=== PATIENT | female | born 1955 | race Hispanic/Latino ===

== ENCOUNTER 2021-04-04 05:42 | Observation (INO) | payer MEDICARE ==
[2021-04-03 16:47] VITALS: BP 154/73
[2021-04-03 17:06] LABS: BASOPHILS % (AUTO) 0.6 % (0.0-5.0); EOSINOPHILS % (AUTO) 1.7 % (0.0-8.0); HEMATOCRIT 39.8 % (36-48); LYMPHOCYTES % (AUTO) 24.7 % (21.0-51.0); MEAN CORPUSCULAR HEMOGLOBIN 30.5 pg (27.0-33.0); MEAN CORPUSCULAR HGB CONC 32.9 g/dL (32.0-36.0); MEAN CORPUSCULAR VOLUME 92.8 fL (79-99); MONOCYTES % (AUTO) 4.2 % (3.0-13.0); NEUTROPHILS % (AUTO) 68.5 % (40.0-77.0); PLATELET COUNT (AUTO) 351 K/uL (130-400); RED BLOOD CELL COUNT(AUTO) 4.29 MIL/uL (4.00-5.50); RED CELL DISTRIBUTION WIDTH 12.8 % (11.0-15.5); WHITE BLOOD COUNT (AUTO) 8.7 K/uL (4.8-10.8)
[2021-04-04] VITALS (23 sets, daily range): BP systolic 85–149; BP diastolic 40–89
[~2021-04-04] VITALS: Ht 162.6 cm; Wt 87.6 kg
[2021-04-04] MEDS ORDERED: LIDOCAINE PF 100MG/5ML (2%) SYRINGE 5ML ONE (08:53)
[2021-04-04] MEDS ORDERED: NEOSTIGMINE 5MG/5ML SYR IV ONE (08:53)
[2021-04-04] MEDS ORDERED: DEXAMETHASONE SOD PHOSPHATE 10MG/ML 1ML VIAL ONE (08:53)
[2021-04-04] MEDS ORDERED: PROPOFOL 10 MG/ML 20ML VIAL IV ONE (08:53)
[2021-04-04] MEDS ORDERED: GLYCOPYRROLATE 1 MG/5 ML SYRINGE ONE (08:53)
[2021-04-04] MEDS ORDERED: MIDAZOLAM HCL 1 MG/ML 2ML VIAL ONE (08:53)
[2021-04-04] MEDS ORDERED: FENTANYL CITRATE PF 50 MCG/1 ML 2ML VIAL ONE ×3 (08:53→12:04)
[2021-04-04] MEDS ORDERED: ROCURONIUM 10MG/1ML SYR 10 MG/ML ML ONE (08:53)
[2021-04-04] MEDS ORDERED: SUCCINYLCHOLINE 200MG/10ML SYR ONE (08:53)
[2021-04-04 08:54] LABS: POTASSIUM 3.4 mmol/L (3.5-5.1)
[2021-04-04] MEDS ORDERED: LISI1TAB51 PO (08:54)
[2021-04-04] MEDS ORDERED: PIOG30TA70 PO (08:54)
[2021-04-04] MEDS ORDERED: AMOX-426 PO (08:54)
[2021-04-04] MEDS ORDERED: MEPERIDINE-PF 25 MG/ML SYG ONE ×3 (08:54→13:10)
[2021-04-04] MEDS ORDERED: PRAV20TA4 PO (08:54)
[2021-04-04] MEDS: CEFAZOLIN SODIUM 1 GM VIAL ONE ×2 (09:44→10:05)
[2021-04-04] MEDS ORDERED: ESTROGENS,CONJUGATED 0.625 MG/GM 42.5 GM VAG CRM VG ONE (11:55)
[2021-04-04] MEDS ORDERED: ACETAMINOPHEN WITH CODEINE 1 TAB TAB PO PRN (14:00)
[2021-04-04] MEDS ORDERED: ONDANSETRON 4MG INJ IVP PRN (14:00)
[2021-04-04] MEDS ORDERED: BISACODYL 10 MG SUPP.RECT RC PRN (14:00)
[2021-04-04] MEDS ORDERED: IBUPROFEN 600 MG TABLET PO PRN (14:00)
[2021-04-04] MEDS ORDERED: PROMETHAZINE HCL 25 MG/ML 1ML AMPULE IM PRN (14:00)
[2021-04-04] MEDS: PROMETHAZINE HCL 25 MG/ML 1ML AMPULE IM PRN ×2 (14:52→18:13)
[2021-04-04] MEDS: MEPERIDINE-PF 75 MG/ML SYG IM PRN ×2 (14:52→18:13)
[2021-04-04] MEDS: INSULIN HUMULIN R 100 UNIT/ML 3ML SQ SCH ×2 (16:30→21:00)
[2021-04-04] MEDS: LACTATED RINGERS 1000ML 1,000 ML IV SCH (18:16)
[2021-04-05] MEDS: LACTATED RINGERS 1000ML 1,000 ML IV SCH ×3 (02:13→22:00)
[2021-04-05 03:14] VITALS: BP 127/67
[2021-04-05 06:44] LABS: HEMATOCRIT 34.4 % (36-48); MEAN CORPUSCULAR HEMOGLOBIN 31.1 pg (27.0-33.0); MEAN CORPUSCULAR HGB CONC 33.1 g/dL (32.0-36.0); RED BLOOD CELL COUNT(AUTO) 3.66 MIL/uL (4.00-5.50); RED CELL DISTRIBUTION WIDTH 12.6 % (11.0-15.5); WHITE BLOOD COUNT (AUTO) 12.7 K/uL (4.8-10.8)
[2021-04-05] MEDS: INSULIN HUMULIN R 100 UNIT/ML 3ML SQ SCH ×4 (07:17→21:00)
[2021-04-05 07:19] VITALS: BP 127/58
[2021-04-05] MEDS: HYDROCODONE/ACETAMINOPHEN 5/325 MG TAB PO PRN ×2 (09:06→12:25)
[2021-04-05] MEDS: DOCUSATE SODIUM 100 MG CAP PO PRN ×2 (09:06→21:00)
[2021-04-05] MEDS: SIMETHICONE 80 MG TAB.CHEW PO PRN ×3 (09:06→20:59)
[2021-04-05] MEDS: NITROFURANTOIN MONOHYD/M-CRYST 100 MG CAPSULE PO SCH ×2 (09:06→21:00)
[2021-04-05 11:05] VITALS: BP 120/66
[2021-04-05] MEDS: IBUPROFEN 800 MG TAB PO PRN (14:28)
[2021-04-05] MEDS: ACETAMINOPHEN WITH CODEINE 1 TAB TAB PO PRN ×2 (16:18→21:04)
[2021-04-05 16:27] VITALS: BP 116/55
[2021-04-05 19:25] VITALS: BP 112/67
[2021-04-05 23:10] VITALS: BP 108/68
[2021-04-06 03:06] VITALS: BP 126/72
[2021-04-06] MEDS: LACTATED RINGERS 1000ML 1,000 ML IV SCH (03:26)
[2021-04-06] MEDS: HYDROCODONE/ACETAMINOPHEN 5/325 MG TAB PO PRN (03:34)
[2021-04-06] MEDS: IBUPROFEN 800 MG TAB PO PRN ×2 (06:32→12:20)
[2021-04-06] MEDS: INSULIN HUMULIN R 100 UNIT/ML 3ML SQ SCH (06:45)
[2021-04-06 07:24] VITALS: BP 125/67
[2021-04-06] MEDS: NITROFURANTOIN MONOHYD/M-CRYST 100 MG CAPSULE PO SCH (08:56)
[2021-04-06] MEDS: SIMETHICONE 80 MG TAB.CHEW PO PRN (08:56)
[2021-04-06] MEDS: DOCUSATE SODIUM 100 MG CAP PO PRN (08:56)
[2021-04-06] MEDS: ACETAMINOPHEN WITH CODEINE 1 TAB TAB PO PRN (09:00)
[2021-04-06] MEDS ORDERED: ACET1TAB25 PO (12:16)
[2021-04-06] MEDS ORDERED: NITR100C4 PO (12:16)
== END 2021-04-06 12:45 | disposition home or self-care (01) ==
LOC: DAH 05:42 → WSH 05:43 → DAH 05:43 → WSH 13:50
PROVIDERS: ADMIT Obstetrics & Gynecology; ATTEND Obstetrics & Gynecology
DX: N81.3 Complete uterovaginal prolapse (principal); K46.9 Unspecified abdominal hernia without obstruction or gangrene; Z79.899 Other long term (current) drug therapy
CPT/HCPCS: 36415 ×3; 58263; 80048; 82948 ×9; 85025; 85027; 86850; 86900; 86901; 87635; 88305; 96360; 96361 ×2; 96372; A4215; A4221; A4222; A4223; A4344; A4351; A4606; A4663; A5113; A6407; C1771; C9803; G0378 ×52; J0330; J0690; J1100; J2001; J2175 ×5; J2250; J2550 ×2; J2704; J2710; J3010 ×3; J3490; J7030; J7120 ×3

== ENCOUNTER 2024-04-15 12:21 | Emergency (ER) | payer MEDICARE ==
[~2024-04-15] VITALS: Ht 162.6 cm; Wt 83.5 kg
[~2024-04-15 12:21] MED LIST: ACET-2079 PO; LISI1TAB51 PO; NITR100C4 PO; PIOG30TA70 PO; PRAV20TA4 PO
[2024-04-15 13:13] LABS: BASOPHILS # (AUTO) 0.05 K/uL (0.00-0.20); BASOPHILS % (AUTO) 0.5 % (0.0-5.0); EOSINOPHILS # (AUTO) 0.06 K/uL (0.00-0.70); EOSINOPHILS % (AUTO) 0.6 % (0.0-8.0); HEMATOCRIT 39.6 % (36-48); IMMATURE GRANULOCYTE ABSOLUTE 0.04 K/uL (0-1); LYMPHOCYTES # (AUTO) 1.5 K/uL (1.0-4.8); LYMPHOCYTES % (AUTO) 15.7 % (21.0-51.0); MEAN CORPUSCULAR HEMOGLOBIN 30.6 pg (27.0-33.0); MEAN CORPUSCULAR HGB CONC 33.3 g/dL (32.0-36.0); MEAN CORPUSCULAR VOLUME 91.9 fL (79-99); MONOCYTES # (AUTO) 0.4 K/uL (0.1-1.0); NEUTROPHILS # (AUTO) 7.6 K/uL (1.8-7.7); NEUTROPHILS % (AUTO) 78.8 % (40.0-77.0); PLATELET COUNT (AUTO) 316 K/uL (130-400); RED BLOOD CELL COUNT(AUTO) 4.31 MIL/uL (4.00-5.50); RED CELL DISTRIBUTION WIDTH 12.4 % (11.0-15.5); WHITE BLOOD COUNT (AUTO) 9.6 K/uL (4.8-10.8)
[2024-04-15] MEDS: ONDANSETRON 4MG INJ IVP ONE (13:45)
[2024-04-15] MEDS: MECLIZINE HCL 25 MG TABLET PO ONE (13:45)
[2024-04-15] MEDS: SOLU-MEDROL 125MG VIAL IVP ONE (13:45)
[2024-04-15] MEDS: 0.9%NACL 1000ML 1,000 ML IV ONE (13:45)
[2024-04-15 13:53] LABS: BILIRUBIN,TOTAL 0.5 mg/dL (0.2-1.0); CREATININE 2.6 mg/dL (0.5-1.0); POTASSIUM 3.4 mmol/L (3.5-5.1); TOTAL PROTEIN, SERUM 7.3 g/dL (6.0-8.3)
[2024-04-15] MEDS: POTASSIUM BICARB/CIT AC 25 MEQ TABLET.EFF PO ONE (14:52)
[2024-04-15 16:12] VITALS: BP 124/66; PULSE 89; RESP 18; O2SAT 96
[2024-04-15] MEDS ORDERED: ONDA-243 PO (16:21)
[2024-04-15] MEDS ORDERED: MECL-302 PO (16:21)
== END 2024-04-15 16:36 | disposition home or self-care (01) ==
LOC: EDH 12:21
DX: H81.10 Benign paroxysmal vertigo, unspecified ear (principal); E87.6 Hypokalemia; E11.22 Type 2 diabetes mellitus with diabetic chronic kidney disease; I13.10 Hypertensive heart and chronic kidney disease without heart failure, with stage 1 through stage 4 chronic kidney disease, or unspecified chronic kidney disease; N18.9 Chronic kidney disease, unspecified; R11.2 Nausea with vomiting, unspecified; E78.00 Pure hypercholesterolemia, unspecified; Z90.710 Acquired absence of both cervix and uterus; Z90.49 Acquired absence of other specified parts of digestive tract; Z98.890 Other specified postprocedural states; Z79.899 Other long term (current) drug therapy; Z79.2 Long term (current) use of antibiotics
CPT/HCPCS: 99285; 96374; 70450; 71045; 96361; 96375; 84484; 80053; 85025; 36415; 93005; J7030; J2919; J2405

== ENCOUNTER 2024-12-15 10:15 | Emergency (ER) | payer MEDICARE ==
[~2024-12-15] VITALS: Ht 162.6 cm; Wt 89.4 kg
[~2024-12-15 10:15] MED LIST changes: +MECL-302 PO; +ONDA-243 PO
--- NOTE | 2024-12-15 10:57 | EKG ---
[facility] Test Date: 2024-12-15 Test Time: 10:42:24 Pat Name: DEMETRA NGUYEN Department: ED Room: Gender: F Facilities Maintenance Manager: [id number] : [id number] Requested By: KODI GARCIA Order Number: [id number] Reading MD: Anand Hahn Measurements Intervals [place] Rate: 95 P: 46 GA: 142 QRS: 92 QRSD: 89 T: 52 QT: 353 QTc: 445 Interpretive Statements Sinus rhythm Right axis deviation Compared to ECG 04/15/2024 12:42:24 Right-axis deviation now present Electronically Signed On 12-16-2024 12:47:41 MATTRESS MAKER by Anand Hahn Please click the below link to view image of tracing.
[2024-12-15 11:30] VITALS: BP 104/60; PULSE 90; RESP 16; TEMP 98.1; O2SAT 98
--- NOTE | 2024-12-15 11:30 | ERN ---
ED Note History of Present Illness Stated Complaint: BACK, SHOULDER PAIN Chief Complaint: Shoulder Injury/Pain Time Seen by MD: 10:16 Time Seen by Midlevel: 10:20 Dictation: 69-year-old female with a history of hypertension, diabetes, cholesterol coming in complaining of bilateral upper back pain/burning sensation for the last three weeks. Patient denies any trauma or fall. Denies lifting or pushing anything heavy. Denies any chest pain or chest discomfort or shortness a breath. 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 04/15/24 Meclizine HCl (Meclizine HCl) 25 Mg Tablet, 25 MG PO TIDP for DIZZINESS, #30 TAB Prov:NISHA IGLESIAS [employer]HEAD CONSTRUCTION WORKER 04/15/24 Reported Medications Nitrofurantoin Monohyd/M-Cryst (Macrobid 100 mg Capsule) 100 Mg Capsule, 100 MG PO BID, CAP 04/06/21 Acetaminophen with Codeine (Acetaminophen-Cod #3 Tablet) 1 Each Tablet, 1 EACH PO Q4HPRN PRN for PAIN LEVEL 6 TO 10, TAB 04/06/21 Lisinopril/Hydrochlorothiazide (Lisinopril-Hctz 20-12.5 mg Tab) 1 Each Tablet, 1 EACH PO BID, TAB 04/04/21 Pravastatin Sodium (Pravastatin Sodium) 20 Mg Tablet, 20 MG PO HS, TAB 04/04/21 Pioglitazone HCl (Pioglitazone HCl) 30 Mg Tablet, 30 MG PO DAILY, TAB 04/04/21 Past Medical History Past Medical History: Diabetes-Type II, High Cholesterol, Hypertension Surgical History: Appendectomy, Hysterectomy, Other Surgical History Other: BLADDER LIFT History: Not Applicable Review of System Dictation Constitutional: Negative for fever,chills, and weight loss Eyes: Negative for injury, pain,redness, and discharge ENT: Negative for injury,pain or swelling Cardiovascular: Negative for chest pain, palpitations, and edema Respiratory: Negative for shortness of breath, cough, and wheezing, Abdomen/GI: Negative for abdominal pain, nausea, vomiting, diarrhea, and constipation Back: Bilateral upper back pain along the scapular area : Negative for injury, bleeding and discharge MS/Extremity: Negative for injury and deformity Skin: Negative for rash, and discoloration Neuro: Negative for headache, weakness, numbness, tingling, and seizure Psych: Negative for suicide ideation, homicidal ideation, and hallucinations Review of Systems: was completed Initial Vital Sign VS Vital Signs Date Time Temp Pulse Resp B/P (MAP) Pulse Ox O2 Delivery O2 Flow Rate FiO2 12/15/24 10:26 97.7 93 16 101/60 95 Room Air 12/15/24 11:30 0 21 Physical Exam Dictation General: awake, alert, NAD Head/Face: Normocephalic, atraumatic Eyes: PERRL, EOMI, vision at baseline ENT: oral cavity clear, TMs clear, no signs of infection Neck: Trachea midline, supple, no nuchal rigidity Cardiovascular: RRR, normal S1/S2, No MRGs, no JVD Respiratory: CTAB, no respiratory distress, No rales or wheezes Abdomen: Soft, non-tender, non-distended, normal bowel sounds, no guarding or rebound. Skin: Warm, dry, normal turgor, no rash MS/Extremity: Pulses equal, no cyanosis, neurovascular intact, FROM, pain when patient lifts her left arm on the upper back area, pain on palpation to bilateral upper back along the scapular area no obvious signs of injury, no rash lesions noted. Neuro: COAx4, GCS 15, strength 5/5, CN 2-12 intact, normal cerebellar exam, normal gait, Psych: Normal behavior, mood, and affect normal Results (Laboratory/Radiology) Laboratory/Radiology Laboratory Tests Test 12/15/24 11:21 White Blood Count 7.6 K/uL (4.8-10.8) Red Blood Count 4.40 MIL/uL (4.00-5.50) Hemoglobin 13.4 g/dL (12.0-16.0) Hematocrit 41.8 % (36-48) Mean Corpuscular Volume 95.0 fL (79-99) Mean Corpuscular Hemoglobin 30.5 pg (27.0-33.0) Mean Corpuscular Hemoglobin Concent 32.1 g/dL (32.0-36.0) Red Cell Distribution Width 13.2 % (11.0-15.5) Platelet Count 292 K/uL (130-400) Mean Platelet Volume 10.0 fL (7.5-10.5) Immature Granulocyte % (Auto) 0.3 % (0-1) Neutrophils (%) (Auto) 67.1 % (40.0-77.0) Lymphocytes (%) (Auto) 23.8 % (21.0-51.0) Monocytes (%) (Auto) 6.2 % (3.0-13.0) Eosinophils (%) (Auto) 1.9 % (0.0-8.0) Basophils (%) (Auto) 0.7 % (0.0-5.0) Neutrophils # (Auto) 5.1 K/uL (1.8-7.7) Lymphocytes # (Auto) 1.8 K/uL (1.0-4.8) Monocytes # (Auto) 0.5 K/uL (0.1-1.0) Eosinophils # (Auto) 0.14 K/uL (0.00-0.70) Basophils # (Auto) 0.05 K/uL (0.00-0.20) Absolute Immature Granulocyte (auto 0.02 K/uL (0-1) Nucleated Red Blood Cells 0.0 % (0.0-0.19) Sodium Level 139 mmol/L (136-145) Potassium Level 4.0 mmol/L (3.5-5.1) Chloride Level 103 mmol/L (101-111) Carbon Dioxide Level 29 mmol/L (21-32) Blood Urea Nitrogen 44 mg/dL (7-18) H Creatinine 2.4 mg/dL (0.5-1.0) H Glomerular Filtration Rate Calc 21 mL/min (>90) Random Glucose 94 mg/dL (70-105) Total Calcium 9.3 mg/dL (8.5-10.1) Troponin I High Sensitivity 6 ng/L (4-50) Labs Reviewed?: Yes EKG Comment: Date:12/15/24 Time:1042 Ventricular rate:95 CO interval:142 QRS duration:92 QT/QTc:353/445 EKG interpretation: Sinus rhythm, right axis deviation Reviewed by ED Attending no STEMI interpreted by ER MD ED Course ED Course Orders Procedure Category Date Status Time Cbc With Differential LAB 12/15/24 Complete 10:36 Basic Metabolic Panel LAB 12/15/24 Complete 10:36 Troponin I High LAB 12/15/24 Complete Sensitivity 10:36 12 Lead Ekg Tracing- EKG 12/15/24 Complete Technical 10:36 Orphenadrine Citrate PHA 12/15/24 Complete (Norflex) 10:36 Chest 1vw RAD 12/15/24 Resulted 11:28 Ketorolac PHA 12/15/24 Logged Tromethamine 15mg/Ml 12:11 Lidocaine (Lidocaine PHA 12/15/24 Transmitted Patch 4%) 12:12 Sling ALMA 12/15/24 Transmitted 12:12 Current Medications Medications (Trade) Dose Ordered Sig/Sotero Route PRN Reason Start Time Stop Time Status Last Admin Dose Admin Orphenadrine Citrate (Norflex) 60 mg ONCE STAT IM 12/15/24 10:36 12/15/24 10:38 DC 12/15/24 11:36 Vital Signs Date Time Temp Pulse Resp B/P (MAP) Pulse Ox O2 Delivery O2 Flow Rate FiO2 12/15/24 11:30 98.1 90 16 104/60 98 Room Air* 0 21 12/15/24 10:26 97.7 93 16 101/60 95 Room Air Medical Decision Making MDM MDM: 69-year-old female with a history of hypertension, diabetes, cholesterol coming in complaining of bilateral upper back pain/burning sensation for the last three weeks. Patient denies any trauma or fall. Denies lifting or pushing anything heavy. Denies any chest pain or chest discomfort or shortness a bandar th.CBC shows no leukocytosis, no anemia, no thrombocytopenia. Chemistry shows elevated BUN and creatinine however patient does have history of kidney problems in his this is baseline based on her previous visits. Troponin is negative. EKGs did not show any ST elevations or dysrhythmias. Chest x-ray shows no acute findings, interpreted by me. Discussed with the patient more than likely her pain is musculoskeletal related versus cardiac. Patient states pain is exacerbated with moving her arms and more so on the left side. Pain medication, lidocaine patch and sling done here in the emergency room. We will prescribe patient pain medication and lidocaine patches take home and we will follow up with the PCP tomorrow as she has not appointment already. Differential diagnosis: Muscle strain, arthritis, ACS Rationale: Tests considered and ordered secondary to shared decision making i nclude: Previous outside records reviewed: Old ER visits. Risk of complication and/or morbidity or mortality of patient management: None Medications-Per medication reconciliation Need for hospitalization: Patient does not meet criteria for hospitalization. Need for emergency major/minor surgery: No There are no social concerns with this patient. Prescription drug management Prescriptions will include symptomatic care Patient's prior external medical records from other ER visits were reviewed by me as indicated. Prior testing and results from previous visits were reviewed. Prior tests were taken into account with medical decision making and resource utilization, independent historian/historians were used to obtain complete medical history. I independently interpreted the test that were performed, results were reviewed by me and considered findings on radiology if ordered. Medical management and examination interpretation discussions were had by me with other qualified healthcare professionals as indicated for the patient's care. DX & DISP Disposition: Discharge Departure Impression: Primary Impression: Muscle ache Additional Impressions: Muscle ache of extremity, Upper back strain Condition: Stable Scripts Naproxen (Naprosyn) 500 Mg Tablet 500 MG PO BIDPC for 5 Days, #10 TAB 0 Refills Prov: KODI GARCIA NP 12/15/24 Lidocaine (Lidocaine) 4 % Adh..patch 1 PATCH TP DAILY for 10 Days, #10 PATCH 0 Refills Prov: KODI GARCIA NP 12/15/24 Additional Instructions: Your upper back pain seems to be related more muscular than cardiac. Keep your sling on to help with the pain. Apply lidocaine patch to the affected area. Please follow up with your PCP as scheduled tomorrow, return if you have any worsening symptoms. Referrals: CINDY KIRKPATRICK DO (PCP) Time of Disposition: 12:20 I have reviewed the case, and I agree with, Diagnosis and Plan KODI GARCIA NP Dec 15, 2024 11:29
[2024-12-15 11:31] LABS: BASOPHILS # (AUTO) 0.05 K/uL (0.00-0.20); BASOPHILS % (AUTO) 0.7 % (0.0-5.0); EOSINOPHILS # (AUTO) 0.14 K/uL (0.00-0.70); EOSINOPHILS % (AUTO) 1.9 % (0.0-8.0); HEMATOCRIT 41.8 % (36-48); IMMATURE GRANULOCYTE ABSOLUTE 0.02 K/uL (0-1); LYMPHOCYTES # (AUTO) 1.8 K/uL (1.0-4.8); LYMPHOCYTES % (AUTO) 23.8 % (21.0-51.0); MEAN CORPUSCULAR HEMOGLOBIN 30.5 pg (27.0-33.0); MEAN CORPUSCULAR HGB CONC 32.1 g/dL (32.0-36.0); MONOCYTES # (AUTO) 0.5 K/uL (0.1-1.0); MONOCYTES % (AUTO) 6.2 % (3.0-13.0); NEUTROPHILS # (AUTO) 5.1 K/uL (1.8-7.7); NEUTROPHILS % (AUTO) 67.1 % (40.0-77.0); PLATELET COUNT (AUTO) 292 K/uL (130-400); RED CELL DISTRIBUTION WIDTH 13.2 % (11.0-15.5); WHITE BLOOD COUNT (AUTO) 7.6 K/uL (4.8-10.8)
[2024-12-15] MEDS: ORPHENADRINE 60MG/2ML IM STA (11:36)
[2024-12-15 11:40] LABS: CREATININE 2.4 mg/dL (0.5-1.0)
--- NOTE | 2024-12-15 12:09 | HMCIMG ---
PORTABLE CHEST RADIOGRAPH INDICATION: cp COMPARISON: 04/15/2024 FINDINGS: Heart size is normal. The pulmonary vascularity and jemima appear normal. No abnormal pulmonary parenchymal opacity or consolidation identified. No significant pleural effusion noted. No pneumothorax detected. IMPRESSION: No radiographic evidence for any acute cardiopulmonary process.
[2024-12-15] MEDS ORDERED: NAPR-1180 PO (12:20)
[2024-12-15] MEDS ORDERED: LIDO1ADH82 TP (12:20)
--- NOTE | 2024-12-15 12:23 | NUR ---
depart pemd media director
[2024-12-15] MEDS: LIDOCAINE 4% ADH..PATCH TP STA (12:25)
[2024-12-15] MEDS: ketOROlac 15MG/ML VIAL (15MG/ML) IM STA (12:26)
--- NOTE | 2024-12-15 12:32 | NUR ---
claudiaing applied per md request
== END 2024-12-15 12:47 | disposition home or self-care (01) ==
LOC: EDH 10:15
DX: S29.012A Strain of muscle and tendon of back wall of thorax, initial encounter (principal); E11.9 Type 2 diabetes mellitus without complications; E78.00 Pure hypercholesterolemia, unspecified; I10 Essential (primary) hypertension; Z79.84 Long term (current) use of oral hypoglycemic drugs; Z79.899 Other long term (current) drug therapy; Z90.49 Acquired absence of other specified parts of digestive tract; Z90.710 Acquired absence of both cervix and uterus; X58.XXXA Exposure to other specified factors, initial encounter; Y93.89 Activity, other specified; Y92.89 Other specified places as the place of occurrence of the external cause; Y99.8 Other external cause status
CPT/HCPCS: 99285; 71045; 84484; 80048; 85025; 36415; 96372 ×2; 93005; J1885; J2360